=== PATIENT | female | born 1965 | race Caucasian/White ===

== ENCOUNTER 2016-10-31 17:23 | Emergency (ER) | payer BC ==
[2016-10-31 17:43] VITALS: TEMP 98.8
[2016-10-31] MEDS ORDERED: ONDANSETRON 4 MG/2 ML VIAL IVP ONE (18:09)
[2016-10-31] MEDS ORDERED: DEXAMETHASONE 10 MG/ML VIAL IVP ONE (18:09)
[2016-10-31] MEDS ORDERED: NS 1,000 ML IV ONE ×2 (18:09→20:32)
[2016-10-31] MEDS ORDERED: HYDROmorphONE/DILAUDID 1 MG/ML SYR IVP ONE ×2 (18:09→19:33)
--- NOTE | 2016-10-31 18:16 | EDPHY ---
H & P Time Seen by Provider: 10/31/16 17:26 HPI/ROS: HPI Cough and congestion, headache. 51-year-old female by private vehicle. This patient reports that she has had a cough, chest congestion and sore throat for the last 2-4 days. She reports also she has had a gradual onset, typical migraine headache that has been on and off for the last week. She has taken Imitrex for today but it has not gotten better. She also describes having muscle aches and joint aches. ROS: Constitutional: No fever, no chills. No weakness. Eyes: No discharge. No changes in vision. ENT: As above. Respiratory: As above. No shortness of breath. Cardiac: No chest pain, no palpitations. Gastrointestinal: No abdominal pain, no vomiting, no diarrhea. Genitourinary: No hematuria. No dysuria or increased frequency with urination. Musculoskeletal: No back pain. No neck pain. As above. Skin: No rashes. Neurological: No headache. No focal weakness or altered sensation. Past medical history: She denies any significant past medical history. Social history: She is traveling from [place]. She is here with a friend. Physical Exam: General Appearance: Alert, no distress. This patient is responding to questions appropriately and in full sentences. This patient appears well- hydrated and well-nourished. Eyes: Pupils equal and round no pallor or injection. No lid edema, erythema or injection. ENT, Mouth: Mucous membranes are moist. The pharyngeal tissues are unremarkable. No edema or swelling. No asymmetry suggestive of abscess. No erythema or exudates. Respiratory: There are no retractions, lungs are clear to auscultation with good air movement bilaterally. Intermittent dry cough. No voice changes. No stridor. Cardiovascular: Regular rate and rhythm. No murmur. Neurological: Motor sensory function is grossly intact. Cranial nerves are normal. Gait is normal. Skin: Warm and dry, no rashes. Musculoskeletal: Neck is supple and nontender. Extremities are symmetrical. All joints range without pain or impingement. Psychiatric: No agitation. No depression. Database: EKG: Imaging: Chest x-ray PA and lateral; the cardiac mediastinal silhouette is unremarkable. No evidence of infiltrate or pneumothorax. Mild airway disease. No other acute cardiopulmonary disease process noted. Interpreted by me. Procedures: Emergency department course: IV was placed. Vital signs have been reviewed and are unremarkable. She is afebrile currently. She was started on IV normal saline with 1 L to be given over the next 1 hour for mild dehydration. She was started on an albuterol/ Atrovent nebulizer to see if this relieved her chest congestion. She was given 200 mg of Tessalon Perle. For her headache she will receive 0.5 mg of IV hydromorphone, 10 mg of IV Decadron and 4 mg of IV Zofran initially. Influenza swab will be obtained. 7:30 p.m., patient stated that her chest felt better but she still had her headache. She has no history of renal dysfunction. She has a normal creatinine from March of this year no contraindications to NSAIDs. She was given 30 mg of IV Toradol and another 0.5 mg of IV hydromorphone. 8:30 p.m., patient re-evaluated. Resting comfortably at this time. She still has a cough. She does feel better. Headache has resolved. Repeat lung exam she is clear on auscultation bilaterally with good air movement. No tachypnea. She did ask me about antibiotics and blood work. I explained that she likely has a viral syndrome and viral mediated bronchitis. I explained that antibiotics were not indicated at this time the blood work would not change our management. She was in agreement with this. She feels comfortable going home and I feel she is safe for discharge. Follow-up and return to emergency department precautions were discussed with her. I will prescribe her Tessalon Perles and Hycodan cough syrup for use at night. All of her questions were answered. She was discharged in good condition with her boyfriend who is driving. Differential Diagnosis: The differential diagnosis on this patient includes but is not limited to migraine headache, influenza, viral syndrome, upper respiratory infection. Pneumonia, serious bacterial infection, congestive heart failure, acute coronary syndrome, subarachnoid hemorrhage, sagittal sinus thrombosis, cavernous sinus thrombosis, meningitis, temporal arteritis unlikely. This represents a partial list of diagnoses considered. These considerations are based on history, physical exam, past history, reassessment and diagnostic testing. Smoking Status: Current every day smoker Constitutional: Initial Vital Signs Temperature (C) 37.1 C 10/31/16 17:40 Heart Rate 75 10/31/16 17:40 Respiratory Rate 20 10/31/16 17:40 Blood Pressure 96/71 L 10/31/16 17:40 O2 Sat (%) 100 10/31/16 17:40 O2 Delivery Mode Room Air Allergies/Adverse Reactions: prochlorperazine edisylate [From Compazine] Allergy (Verified 06/07/13 23:50) prochlorperazine maleate [From Compazine] Allergy (Verified 06/07/13 23:50) Home Medications: Medication Instructions Recorded Miscellaneous Medical Supply [NO 1 ea MISC AD 06/07/13 HOME MEDS] Benzonatate [Tessalon Pearles (RX)] 100 mg PO TID PRN #30 cap 03/13/16 Guaifenesin/Codeine Phos [Codeine 118 ml PO TID PRN #1 btl 03/13/16 10 mg-Guai 300 mg Liq] Benzonatate [Tessalon Pearles] 100 mg PO TID #12 cap 10/31/16 HYDROcodone/HOMATROPINE HYCODA 1 tsp PO Q4-6PRN PRN #120 ml 10/31/16 [Hycodan Syrup (RX)] Medical Decision Making - Data Points Medications Given: Discontinued Medications Albuterol/Ipratropium (Duoneb) 3 ml IH EDNOW ONE Stop: 10/31/16 18:18 Last Admin: 10/31/16 19:10 Dose: 3 ml Benzonatate (Tessalon Pearles) 200 mg PO EDNOW ONE Stop: 10/31/16 18:18 Last Admin: 10/31/16 19:10 Dose: 200 mg Dexamethasone (Decadron Injection) 10 mg IVP EDNOW ONE Stop: 10/31/16 18:10 Last Admin: 10/31/16 18:56 Dose: 10 mg Hydromorphone HCl (Dilaudid) 0.5 mg IVP EDNOW ONE Stop: 10/31/16 18:10 Last Admin: 10/31/16 18:56 Dose: 0.5 mg Hydromorphone HCl (Dilaudid) 0.5 mg IVP EDNOW ONE Stop: 10/31/16 19:34 Last Admin: 10/31/16 19:41 Dose: 0.5 mg Sodium Chloride (Ns) 1,000 mls @ 0 mls/hr IV ONCE ONE PRN Reason: Wide Open Stop: 10/31/16 18:10 Last Admin: 10/31/16 18:56 Dose: 1,000 mls Sodium Chloride (Ns) 1,000 mls @ 0 mls/hr IV ONCE ONE PRN Reason: Wide Open Stop: 10/31/16 20:33 Last Admin: 10/31/16 20:33 Dose: 1,000 mls Ketorolac Tromethamine (Toradol) 30 mg IVP EDNOW ONE Stop: 10/31/16 19:34 Last Admin: 10/31/16 19:41 Dose: 30 mg Ondansetron HCl (Zofran) 4 mg IVP EDNOW ONE Stop: 10/31/16 18:10 Last Admin: 10/31/16 18:57 Dose: 4 mg Departure - Departure Disposition: Home, Routine, Self-Care Clinical Impression: Bronchitis, Headache Condition: Good Instructions: Acute Bronchitis (ED), Viral Syndrome (ED) Additional Instructions: Read and follow provided instructions. Follow-up with your primary care physician in 1-2 days for re-evaluation as discussed. Take medication as prescribed. Return to the emergency department for worsening cough, difficulty breathing, high fever, vomiting and inability to keep hydrated or other serious concerns. Keep yourself well hydrated by drinking lots of fluids. The best fluid to drink is Gatorade mixed with water in a 1-1 dilution. Referrals: NONE *PRIMARY CARE P,. [Primary Care Provider] - As per Instructions Prescriptions: HYDROcodone/HOMATROPINE HYCODA [Hycodan Syrup (RX)] 1 tsp PO Q4-6PRN PRN #120 ml PRN Reason: Cough Benzonatate [Tessalon Pearles] 100 mg PO TID #12 cap
[2016-10-31] MEDS ORDERED: BENZONATATE 100 MG CAP PO ONE (18:17)
[2016-10-31] MEDS ORDERED: IPRATROPIUM/ALBUTEROL 3 ML DEYVIAL IH ONE (18:17)
--- NOTE | 2016-10-31 18:32 | DX ---
PA and Lateral Chest 17:49PM Indication: Chest pain Comparison: CT angiogram chest dated March 13, 2016 and 2 view chest dated June 08, 2013 Findings: Lungs are clear except for mild diffuse peribronchial thickening. No pneumothorax, airspace consolidation, edema, or effusion. The heart size is normal. Impression: No acute process. Mild airways disease similar to June 2013.
[2016-10-31] MEDS ORDERED: KETOROLAC 30 MG/1 ML SDV IVP ONE (19:33)
[2016-10-31 21:00] VITALS: BP 120/69; PULSE 77; RESP 16; O2SAT 97
[2016-11-01 16:41] LABS: % IMMATURE GRANULYOCYTES 0.5 % (0.0-1.1); ABSOLUTE IMMATURE GRANULOCYTES 0.03 10^3/uL (0.00-0.10); ADD DIFF? NO; ADD MORPH? NO; ADD SCAN? NO; ATYPICAL LYMPHOCYTE FLAG 20 (0-99); FRAGMENT RBC FLAG 0 (0-99); LEFT SHIFT FLG 0 (0-99); LIPEMIA HEMOLYSIS FLAG 80 (0-99); MEAN CELL HEMOGLOBIN 29.8 pg (27.9-34.1); MEAN CELL HEMOGLOBIN CONCENTR. 32.4 g/dL (32.4-36.7); MEAN CELL VOLUME 91.8 fL (81.5-99.8); MEAN PLATELET VOLUME 10.8 fL (8.7-11.7); PLATELET CLUMPS FLAG 0 (0-99); PLATELET COUNT 241 10^3/uL (150-400); RED BLOOD CELL COUNT 4.03 10^6/uL (4.18-5.33); RED CELL DISTRIBUTION WIDTH 14.2 % (11.5-15.2)
== END 2016-10-31 20:59 | disposition home or self-care (01) ==
DX: J40 Bronchitis, not specified as acute or chronic (principal); F17.200 Nicotine dependence, unspecified, uncomplicated
CPT/HCPCS: 96374; J1170; J1885; J2405

== ENCOUNTER 2017-05-07 23:01 | Observation (INO) | payer BC ==
--- NOTE | 2017-05-07 23:26 | EDPHY ---
H & P Stated Complaint: c/o R lower back pain and generalized abd pain and painful urination - Personal History Tetanus Vaccine Date: <10 yrs - Medical/Surgical History Hx Asthma: No Hx Chronic Respiratory Disease: No Hx Diabetes: No Hx Cardiac Disease: No Hx Renal Disease: No Hx Cirrhosis: No Hx Alcoholism: No Hx HIV/AIDS: No Hx Splenectomy or Spleen Trauma: No Other PMH: back surg, laparoscopy x 3 - Social History Smoking Status: Never smoked Time Seen by Provider: 05/07/17 23:16 HPI/ROS: CHIEF COMPLAINT: Dysuria, right flank pain HISTORY OF PRESENT ILLNESS: 52-year-old female complaining of 1 week of dysuria with development of right flank pain the past 24 hours. No nausea or vomiting. No fever or chills. Patient states that she is unable to tolerate any oral antibiotic and can only tolerate IV antibiotics. Denies: Abdominal pain, chest pain, dyspnea, trauma, rash, vesicles. REVIEW OF SYSTEMS: A ten point review of systems was performed and is negative with the exception of the items mentioned in the HPI PAST MEDICAL & SURGICAL HISTORY: No pertinent medical or surgical history SOCIAL HISTORY: works as an studio designer PHYSICAL EXAM (Prior to examination, patient consented to physical exam, hands were washed and my usual and customary physical exam procedures followed) 1) GENERAL: Well-developed, well-nourished, alert and oriented. Appears nontoxic . 2) HEAD: Normocephalic, atraumatic 3) HEENT: Pupils equal, round, reactive to light bilaterally. Sclera anicteric. 4) NECK: Full range of motion, no meningeal signs. 5) LUNGS: Clear auscultation bilaterally, no wheezes, no rhonchi, no retractions. 6) HEART: Regular rate and rhythm, no murmur, no heave, no gallop. 7) ABDOMEN: No guarding, no rebound, no focal tenderness, negative McBurney's, negative Banuelos's, negative Rovsing's, negative peritoneal sign, 8) MUSCULOSKELETAL: Moving all extremities, no focal areas of tenderness, no obvious trauma. No peripheral edema or discoloration. 9) BACK: Positive right CVA tenderness, no midline vertebral tenderness, no fluctuance, no step-off, no obvious trauma, no visual or palpable abnormality. 10) SKIN: No rash, no petechiae. 11) Psychiatric: Patient is oriented X 3, there is no agitation. DIFFERENTIAL DIAGNOSIS: in no particular include but limited to cystitis, pyelonephritis, urosepsis, nephrolithiasis (Orville Hernandez) CT scan of the Abdomen pelvis without IV contrast. The results of the study are negative for kidney stones or ureteral stones, bladder thickened wall consistent with cystitis The study was read by Dr. Robles. I viewed the images myself on the PACS system. 0308AM: Re-evaluation at this time patient is having ongoing bilateral CVA pain with tenderness palpation, ongoing nausea with vomiting here. Discussed at length about keeping her overnight in the hospital for IV hydration nausea control pain control and pyelonephritis. Her CT scan does show thickening of the bladder wall which is consistent with cystitis and she has bilateral CVA tenderness which is consistent with pyelonephritis. The patient at this time is not thrilled to go home giving ongoing nausea bilateral CVA pain. I feel it is reasonable to keep her overnight for further care. I will consult the hospitalist service for admission for acute pyelonephritis. 0326AM: Patient received a 2nd L fluid here. IV Zofran. She agrees on admission to the hospital. I spoke with Dr. Zuluaga hospitalist service agrees to admit this patient for UTI pyelonephritis. (Terrence Montenegro) Constitutional: Initial Vital Signs Temperature (C) 36.7 C 05/07/17 23:03 Heart Rate 77 05/07/17 23:03 Respiratory Rate 16 05/07/17 23:03 Blood Pressure 125/86 H 05/07/17 23:03 O2 Sat (%) 99 05/07/17 23:03 O2 Delivery Mode Room Air Allergies/Adverse Reactions: acetaminophen [From Tylenol] Allergy (Verified 05/08/17 03:25) prochlorperazine edisylate [From Compazine] Allergy (Verified 05/07/17 23:07) prochlorperazine maleate [From Compazine] Allergy (Verified 05/07/17 23:07) Home Medications: Medication Instructions Recorded Miscellaneous Medical Supply [NO 1 ea MISC AD 06/07/13 HOME MEDS] Cephalexin [Keflex] 500 mg PO QID 7 Days 05/08/17 Pantoprazole Sodium [Protonix 40mg 40 mg PO DAILY #30 tab 05/08/17 (RX)] Medical Decision Making ED Course/Re-evaluation: Patient has evidence of pyelonephritis. Urine has been cultured. Doubt urosepsis. Doubt nephrolithiasis. She requested dose of IV antibiotics noting that oral antibiotics tend to cause her stomach discomfort. She has been given dose of IV ceftriaxone in the emergency department will be discharged with oral Keflex and also recommend she started on proton pump inhibitor. (Orville Hernandez) - Data Points Laboratory Results: Laboratory Results 05/08/17 00:51 05/08/17 00:51 05/08/17 05/08/17 05/07/17 00:51 00:51 23:15 WBC 11.88 10^3/uL H 10^3/uL (3.80-9.50) RBC 4.06 10^6/uL L 10^6/uL (4.18-5.33) Hgb 12.1 g/dL L g/dL (12.6-16.3) Hct 37.0 % L % (38.0-47.0) MCV 91.1 fL fL (81.5-99.8) MCH 29.8 pg pg (27.9-34.1) MCHC 32.7 g/dL g/dL (32.4-36.7) RDW 12.8 % % (11.5-15.2) Plt Count 304 10^3/uL 10^3/uL (150-400) MPV 10.1 fL fL (8.7-11.7) Neut % (Auto) 70.9 % % (39.3-74.2) Lymph % (Auto) 19.7 % % (15.0-45.0) King % (Auto) 6.7 % % (4.5-13.0) Eos % (Auto) 2.0 % % (0.6-7.6) Baso % (Auto) 0.4 % % (0.3-1.7) Nucleat RBC Rel Count 0.0 % % (0.0-0.2) Absolute Neuts (auto) 8.41 10^3/uL H 10^3/uL (1.70-6.50) Absolute Lymphs (auto) 2.34 10^3/uL 10^3/uL (1.00-3.00) Absolute Monos (auto) 0.80 10^3/uL 10^3/uL (0.30-0.80) Absolute Eos (auto) 0.24 10^3/uL 10^3/uL (0.03-0.40) Absolute Basos (auto) 0.05 10^3/uL 10^3/uL (0.02-0.10) Absolute Nucleated RBC 0.00 10^3/uL 10^3/uL (0-0.01) Immature Gran % 0.3 % % (0.0-1.1) Immature Gran # 0.04 10^3/uL 10^3/uL (0.00-0.10) Sodium 142 mEq/L mEq/L (134-144) Potassium 4.6 mEq/L mEq/L (3.5-5.2) Chloride 107 mEq/L mEq/L (97-110) Carbon Dioxide 22 mEq/l mEq/l (22-31) Anion Gap 13 mEq/L mEq/L (8-16) BUN 10 mg/dL mg/dL (7-23) Creatinine 0.6 mg/dL mg/dL (0.6-1.0) Estimated GFR > 60 Glucose 95 mg/dL mg/dL (70-100) Calcium 9.0 mg/dL mg/dL (8.5-10.4) Urine Color YELLOW Urine Appearance MODERATELY TURBID Urine pH 7.0 (5.0-7.5) Ur Specific Crowley 1.008 (1.002-1.030) Urine Protein 1+ H (NEGATIVE) Urine Ketones NEGATIVE (NEGATIVE) Urine Blood 1+ H (NEGATIVE) Urine Nitrate NEGATIVE (NEGATIVE) Urine Bilirubin NEGATIVE (NEGATIVE) Urine Urobilinogen NEGATIVE EU EU (0.2-1.0) Ur Leukocyte Esterase 3+ H (NEGATIVE) Urine RBC 15-25 /hpf H /hpf (0-3) Urine WBC 50-182 /hpf H /hpf (0-3) Ur Epithelial Cells TRACE /lpf /lpf (NONE-1+) Urine Bacteria TRACE /hpf H /hpf (NONE SEEN) Urine Glucose NEGATIVE (NEGATIVE) Medications Given: Discontinued Medications Ceftriaxone Sodium/Dextrose (Rocephin 1 Gm (Premix)) 50 mls @ 100 mls/hr IV EDNOW ONE PRN Reason: Protocol Stop: 05/07/17 23:53 Last Admin: 05/08/17 00:56 Dose: 50 mls Sodium Chloride (Ns) 1,000 mls @ 0 mls/hr IV ONCE ONE; Wide Open PRN Reason: Protocol Stop: 05/08/17 00:58 Last Admin: 05/08/17 00:57 Dose: 1,000 mls Sodium Chloride (Ns) 1,000 mls @ 0 mls/hr IV ONCE ONE PRN Reason: Wide Open Stop: 05/08/17 03:08 Last Admin: 05/08/17 03:16 Dose: 1,000 mls Ketorolac Tromethamine (Toradol) 15 mg IVP EDNOW ONE Stop: 05/08/17 02:09 Last Admin: 05/08/17 02:12 Dose: 15 mg Ondansetron HCl (Zofran) 4 mg IVP EDNOW ONE Stop: 05/08/17 03:08 Last Admin: 05/08/17 03:14 Dose: 4 mg Ondansetron HCl (Zofran) 4 mg IVP EDNOW ONE Stop: 05/08/17 03:09 Last Admin: 05/08/17 03:09 Dose: Not Given Phenazopyridine HCl (Pyridium) 200 mg PO EDNOW ONE Stop: 05/08/17 00:59 Last Admin: 05/08/17 00:58 Dose: 200 mg Departure - Departure Disposition: [facility] Acute Clinical Impression: Pyelonephritis Condition: Fair Instructions: Kidney Infection (ED) Referrals: Krystian Laws MD [place] [place] - 1-2 days without fail Prescriptions: Cephalexin [Keflex] 500 mg PO QID 7 Days Pantoprazole Sodium [Protonix 40mg (RX)] 40 mg PO DAILY #30 tab
[2017-05-07 23:38] LABS: COLOR YELLOW; LEUKOCYTE ESTERASE,URINE 3+ (NEGATIVE); NITRITE,URINE NEGATIVE (NEGATIVE)
[2017-05-08 00:03] LABS: BACTERIA TRACE /hpf (NONE SEEN); RBC,URINE 15-25 /hpf (0-3); WBC,URINE 50-182 /hpf (0-3)
[2017-05-08] MEDS ORDERED: PHENAZOPYRIDINE HCL 200 MG TAB ONE (00:53)
[2017-05-08] MEDS ORDERED: NS 1,000 ML IV ONE ×2 (00:57→03:07)
[2017-05-08] MEDS ORDERED: PHENAZOPYRIDINE HCL 200 MG TAB PO ONE (00:58)
[2017-05-08 01:20] LABS: % IMMATURE GRANULYOCYTES 0.3 % (0.0-1.1); ABSOLUTE IMMATURE GRANULOCYTES 0.04 10^3/uL (0.00-0.10); ADD DIFF? NO; ADD MORPH? NO; ADD SCAN? NO; ATYPICAL LYMPHOCYTE FLAG 10 (0-99); FRAGMENT RBC FLAG 0 (0-99); HEMOGLOBIN 12.1 g/dL (12.6-16.3); LEFT SHIFT FLG 0 (0-99); LIPEMIA HEMOLYSIS FLAG 80 (0-99); MEAN CELL HEMOGLOBIN 29.8 pg (27.9-34.1); MEAN CELL HEMOGLOBIN CONCENTR. 32.7 g/dL (32.4-36.7); MEAN CELL VOLUME 91.1 fL (81.5-99.8); MEAN PLATELET VOLUME 10.1 fL (8.7-11.7); PLATELET CLUMPS FLAG 10 (0-99); PLATELET COUNT 304 10^3/uL (150-400); RED BLOOD CELL COUNT 4.06 10^6/uL (4.18-5.33); RED CELL DISTRIBUTION WIDTH 12.8 % (11.5-15.2)
[2017-05-08 01:40] LABS: ANION GAP 13 mEq/L (8-16); CARBON DIOXIDE 22 mEq/l (22-31); CHLORIDE 107 mEq/L (97-110); CREATININE 0.6 mg/dL (0.6-1.0); GLOMERULAR FILTRATION RATE > 60; GLUCOSE 95 mg/dL (70-100); POTASSIUM 4.6 mEq/L (3.5-5.2); SODIUM 142 mEq/L (134-144)
[2017-05-08] MEDS ORDERED: KETOROLAC 15 MG/1 ML SDV ONE (02:08)
[2017-05-08] MEDS ORDERED: KETOROLAC 30 MG/1 ML SDV IVP ONE ×2 (02:08→09:41)
[2017-05-08] MEDS ORDERED: ONDANSETRON 4 MG/2 ML VIAL IVP ONE ×2 (03:07→03:08)
[2017-05-08] MEDS ORDERED: ONDANSETRON 4 MG/2 ML VIAL ONE (03:07)
[2017-05-08] MEDS ORDERED: KETOROLAC 15 MG/1 ML SDV IVP ONE (03:30)
[2017-05-08] MEDS ORDERED: fentaNYL 100 MCG/2 ML INJ IVP ONE (03:39)
[2017-05-08] MEDS ORDERED: fentaNYL 100 MCG/2 ML INJ ONE (03:42)
[2017-05-08] MEDS ORDERED: HYDROmorphONE/DILAUDID 1 MG/ML SYR IVP ONE (05:30)
[2017-05-08] MEDS ORDERED: ALTEPLASE 2 MG VIAL IVP PRN (07:24)
[2017-05-08] MEDS ORDERED: ONDANSETRON DISINTEGRATING 4 MG TAB PO PRN (07:26)
[2017-05-08] MEDS ORDERED: HYDROmorphONE/DILAUDID 1 MG/ML SYR IVP PRN (07:26)
[2017-05-08] MEDS ORDERED: ONDANSETRON 4 MG/2 ML VIAL IVP PRN (07:26)
[2017-05-08] MEDS ORDERED: NS 1,000 ML IV SCH (07:30)
[2017-05-08 07:45] VITALS: BP 103/57; PULSE 71; RESP 16; TEMP 99.2; O2SAT 97
--- NOTE | 2017-05-08 08:06 | GHP ---
[f rep st] HISTORY AND PHYSICAL DATE OF ADMISSION: 05/08/2017 HISTORY OF PRESENT ILLNESS: The patient is a pleasant 52-year-old female who presents to the hospit ct with fever and malaise. She has had a week of urinary symptoms, urgency, frequency, dysuria. xiomara uncommonly gets UTIs. She has tried pushing fluids, cranberry juice, etc., with no improvement in symptoms. About 48 hours ago she began to develop some back pain and subjective fevers and chills, ultimately sought care today out of malaise. She has had some nausea, no vomiting, no cough. She used a condom with her longstanding partner a c ouple of weeks ago and after that her urinary symptoms started. She wonders if that could be relate d. She does not have a known latex allergy. She has had no vaginal irritation, no vaginal discharg e, and no sores in her vagina, really just classic UTI symptoms, urgency, frequency, dysuria. REVIEW OF SYSTEMS: Complete 10-point review of systems conducted and negative except as noted in th e HPI. PAST MEDICAL HISTORY: She had an ovarian cyst with hemorrhage, requiring laparoscopy. ALLERGIES: Tylenol, prochlorperazine. She states she does not tolerate any oral antibiotics; she h as vomiting associated with them. SOCIAL HISTORY: She lives part-time in [place]. 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 No tobacco, no alcohol. FAMILY HISTORY: Reviewed and unremarkable. PHYSICAL EXAM: VITAL SIGNS: Temp 37.8, blood pressure 107/64, pulse 74, breathing 16 times a minut e, 92% on room air. GENERAL: No acute distress. HEENT: Sclerae anicteric. Oropharynx clear. Mu cous membranes moist. NECK: Supple, without lymphadenopathy or JVD. LUNGS: Clear to auscultation bilaterally. HEART: S1, S2 without tachycardia. ABDOMEN: Soft, nontender, nondistended. There is some right CVA tenderness. LOWER EXTREMITIES: Without edema. Calves are nontender. SKIN: Wit hout rash. NEUROLOGIC: Nonfocal. LABS: White count 11.9, hematocrit 37, platelets are 304,000. Sodium 142, potassium 4.6, chloride 107, bicarb 22, BUN 10, creatinine 0.6, glucose 95. UA shows 50-100 white cells, 15-[address] of the abdomen and pelvis shows no renal calculus, thickened bladder wall, consistent with cystit is. I have discussed the case with Dr. Terrence Montenegro. ASSESSMENT/PLAN: This is a 52-year-old female with pyelonephritis. 1. Pyelonephritis, as evidenced by pyuria and back pain and low-grade temperatures. Patient was st arted on ceftriaxone. She is adamant that she does not tolerate oral antibiotics and I think it is probably fruitless in order to try. I have discussed the options of PICC line versus for outpatient treatment. I think she is probably well enough to discharge from the hospital here in the next day or so. She would like to do IM ceftriaxone. This can be arranged probably through our outpatient clinic for outpatient antibiotics. 2. Malaise. I think this is secondary to her infection and would follow. If she still has malaise after treating the infection, it would be reasonable to get a thyroid workup. 3. Question sepsis. The patient does not have sepsis. 4. Leukocytosis, attributable to the pyelonephritis. DISPOSITION: Observation status. /[id number]/MODL
[2017-05-08] MEDS ORDERED: IBUPROFEN 800 MG TAB PO PRN (09:20)
[2017-05-08] MEDS ORDERED: BUPRENORPHINE HCL SL PRN (09:41)
[2017-05-08] MEDS ORDERED: NALOXONE HCL SL PRN (09:41)
[2017-05-08] MEDS ORDERED: PHENAZOPYRIDINE HCL 200 MG TAB PO SCH (09:49)
--- NOTE | 2017-05-08 11:08 | PDIAF ---
- Diagnosis Diagnosis: Pyelonephritis Code Status: Full Code - Medication Management Discharge Medications: Medications to Continue on Transfer Buprenorphine HCl/Naloxone HCl [Suboxone 2 mg-0.5 mg SL Film] 1 film SL DAILY PRN 05/08/17 [Last Taken Unknown] Cephalexin [Keflex] 500 mg PO QID 7 Days 05/08/17 [Last Taken Unknown] HYDROcodone/IBUPROFEN [Hydrocodone-Ibuprofen 7.5-200] 7.5 - 200 mg PO DAILY PRN 05/08/17 [Last Taken Unknown] Ibuprofen [Motrin (*)] 600 mg PO DAILY PRN 05/08/17 [Last Taken 05/07/17] Pantoprazole Sodium [Protonix 40mg (RX)] 40 mg PO DAILY #30 tab 05/08/17 [Last Taken Unknown] Speed Operator Antibiotics: Ceftriaxone 1g IV daily Correction Antibiotic Stop Date: 05/16/17 Discharge Medications: Refer to the Discharge Home Medication list for PRN reason. - Labs/Radiology CBC Date: 05/09/17 (then 05/14/17) CMP Date: 05/09/17 (then 05/14/17) Call or Fax Lab and Imaging Results to: fax labs to Dr. [phone] - Follow Up Care Current Providers and Referrals: Krystian Laws MD [[facility] [place] - 1-2 days without fail Giuseppe Orourke MD [Medical Doctor] - 05/16/17 10:30 am (f/u with Dr. Orourke ( INfectious Diseases) at 10:30am. CHeck IN time : 10:10am. Thanks. )
--- NOTE | 2017-05-08 12:14 | PDDCSUM ---
Discharge Summary Discharge Summary: ISCHARGE SUMMARY FOLLOW-UP ITEMS: Follow up blood cultures and urine cultures DATE OF ADMISSION: 05/08/2017 DATE OF DISCHARGE: 05/08/2017 DISCHARGE DIAGNOSES: 1. Acute pyelonephritis CONSULTATIONS: Infectious Disease PROCEDURES / IMAGING: CT of the abdomen demonstrating bladder wall inflammation CHIEF COMPLAINT: Acute abdominal pain in right flank pain SUBJECTIVE: Patient reports that her pain is better managed at time of discharge, she does have a headache PHYSICAL EXAM ON DISCHARGE: Systolic blood pressure is 110, heart rate 60, satting well on room air, abdomen is soft, with some bladder tenderness, right CVA tenderness, no rebound or guarding LABS ON DISCHARGE: Urinalysis demonstrates 50-180 white blood cells, 3+ leukocyte esterase, white blood cell count 80347, hemoglobin 12 HOSPITAL COURSE BY PROBLEM: 1. Acute pyelonephritis. Evidenced by positive urinalysis, positive urinary frequency and dysuria, positive right CVA tenderness, leukocytosis. Most likely organism is E coli, and the patient has received IV ceftriaxone. The patient reports GI intolerance to all oral antibiotics, regardless of class, and is unable to safely tolerate any oral antibiotics at discharge. Consequently , Infectious Disease was consulted and the decision was made to place the patient on 10 days of IV ceftriaxone, administered at the infusion center, via peripheral IV. This will be supervised by Dr. Orourke, the patient will follow up in clinic thereafter, and blood cultures and urine cultures were both sent prior to discharge. Abdominal CT was performed ensure that there is no perinephric abscess. DISCHARGE MEDICATIONS: Please see official discharge medication reconciliation sheet in chart , ceftriaxone IV 1 g, total of 10 days therapy. Pyridium 200 mg 3 times daily, for bladder spasms. Ibuprofen as needed. DISCHARGE INSTRUCTIONS: Please follow up with Dr. Orourke as arranged and present to the infusion center tomorrow. 60 minutes of total time were spent caring for the patient and coordinating this discharge.
--- NOTE | 2017-05-08 20:13 | GCON ---
[f rep st] CONSULTATION INFECTIOUS DISEASE CONSULTATION DATE OF CONSULTATION: 05/08/2017 REFERRING PHYSICIAN: Roe Saleem MD REASON FOR CONSULTATION: Possible pyelonephritis. CHIEF COMPLAINT: Fevers, chills, dysuria, and right flank pain. HISTORY OF PRESENT ILLNESS: This is a 52-year-old, female, with past medical history sign ificant for migraines, ovarian cyst with hemorrhage, who came in yesterday after complaining of dysu fausto and urgency for 1 week, followed by fevers, shaking chills, and right flank pain that started ye sterday. She states that over the past 1 week she has been trying to hydrate well, taking cranberry juice, but she has not had any improvement. She stated that her last sexual activity was 1 week ag o, and symptoms started shortly after. She said she did use condoms. In the ER, temperature was 37 .8. She had a leukocytosis of 11.8, with a high absolute neutrophil count. Urine cultures were jose alfredo en, and they are pending. Urinalysis was abnormal and showed pyuria. She did undergo a CT of the a bdomen and pelvis, which showed bladder thickening with no renal calculi. She was given a dose of R ocephin last night. She no longer has shaking chills, but continues to have dysuria and right flank pain. Infectious Disease is now consulted for further evaluation and opinion regarding above. REVIEW OF SYSTEMS: GENERAL: She had fevers and shaking chills yesterday, had a slight headache tod ay. EYES: No change in vision. ENT: No sore throat, difficulty swallowing, ear pain or drainage. CARDIOVASCULAR: Denies any chest pain or rapid heartbeat. RESPIRATORY: Denies any cough or sput um production. Does have some occasional shortness of breath here. GI: Vomited yesterday with int ermittent nausea and lower abdominal pain, but no diarrhea. BACK: Complains of right CVA tendernes s. EXTREMITIES: No lower extremity edema. MUSCULOSKELETAL: Denies any joint pains or muscle ache s. SKIN: Denies any rashes. Rest of review of systems essentially negative above. PAST MEDICAL HISTORY: Significant for migraines, ovarian cyst with hemorrhage, occasional urinary t ract infections. PAST SURGICAL HISTORY: Significant for right lumpectomy, which was noted to be benign . ALLERGIES: Tylenol, prochlorperazine. She has lower GI side effects due to oral antibiotics, but d enies any shortness of breath, or throat swelling, or rash with them. SOCIAL HISTORY: She lives part-time in [place], part-time in [place]. She is an interior mandy gner. She lives alone. She has a steady boyfriend. She does not drink any alcohol or do illicit d rugs. She came has a dog, which is healthy. She does weights. FAMILY HISTORY: Significant for her mother having breast cancer. PHYSICAL EXAMINATION: VITAL SIGNS: Temperature current 37.3, pulse is 71, respiratory rate is 16, saturation is 97% on room air, blood pressure 103/57. GENERAL: She is resting in bed, in no acute respiratory distress. Awake, alert, and oriented. HEENT: Eyes without conjunctival injection or p etechiae. Oropharynx is clear. There is no obvious posterior pharyngeal erythema. CARDIOVASCULAR: S1, S2. Regular rate and rhythm. No murmurs appreciated. RESPIRATORY: Clear to auscultate bila terally. No obvious rhonchi or rales appreciated. ABDOMEN: Positive bowel sounds in all 4 quadran ts, soft, nondistended. She has some tenderness in the suprapubic region. No guarding or rebound. EXTREMITIES: No lower extremity edema. MUSCULOSKELETAL: No pain on palpation of the joints. SKI N: No obvious rashes. BACK: She has right CVA tenderness. LABORATORY DATA: White blood cell count of 11.8, hemoglobin 12.1, platelets are 304, neutrophil cou nt is 8.4, sodium 142, potassium 4.6, chloride 107, bicarb 22, BUN is 13, creatinine 0.6. Urinalysi s: 1+ blood, 1+ protein, 3+ leuko esterase. Urine WBCs 50-102, urine RBCs 15-25, trace epithelial cells, trace bacteria. Urine cultures are pending. CT of the abdomen and pelvis shows thickened bladder wall with possible cystitis. No renal calculi noted. ASSESSMENT: Fevers, chills, leukocytosis with possible pyelonephritis. PLAN: Urine cultures are pending. She was given a dose of Rocephin. She is adamant that she does not want any oral antibiotics due to intolerances. She is willing to do IV ceftriaxone for 10 days for treatment of the above. She does not want to stay in the hospital today, and would like to rece brodie this as an outpatient. We will coordinate care with the porter sample case to help set up infusions 3 . We will have her see us back in the office in 1 week. Check followup labs tomorrow, as well as Sunday for monitoring of care. Her lab results and culture results were reviewed with her today . Plan of care was reviewed, as well as followup recommendations. Blood cultures are pending, but this was collected after 1 dose of antibiotics, so the yield may be lower. Care was coordinated wit rip Saleem. I thank you for providing us the opportunity to care for your patient in consultation. /[id number]/MODL
== END 2017-05-08 14:07 | disposition home or self-care (01) ==
LOC: F2W 05-08 04:55
PROVIDERS: ADMIT Internal Medicine; ATTEND Internal Medicine
DX: N10 Acute pyelonephritis (principal)
CPT/HCPCS: 74176; G0378; 96365; J0696; J1170; J1885; J2405; J3010

== ENCOUNTER → 2018-11-04 | Outpatient (CLI) | payer OTHER | LOC: FIMAGING 14:01 | PROVIDERS: ATTEND Physician Assistant | DX: M85.89 Other specified disorders of bone density and structure, multiple sites (principal); N95.9 Unspecified menopausal and perimenopausal disorder; M54.9 Dorsalgia, unspecified; Z87.312 Personal history of (healed) stress fracture; Z98.890 Other specified postprocedural states ==

== ENCOUNTER → 2018-11-12 | Outpatient (CLI) | payer OTHER | LOC: FIMAGING 15:43 | PROVIDERS: ATTEND Physician Assistant | DX: R06.02 Shortness of breath (principal); R13.10 Dysphagia, unspecified; J02.9 Acute pharyngitis, unspecified ==